=== PATIENT | female | born 1960 | race Caucasian/White ===

== ENCOUNTER 2017-06-23 08:22 | Day surgery (SDC) | payer OTHER ==
[~2017-06-23] VITALS: Ht 160 cm; Wt 95.4 kg
[2017-06-23 09:14] VITALS: Ht 160 cm; Wt 95.4 kg
[2017-06-23] MEDS ORDERED: ACID REDUCER PO (09:16)
[2017-06-23] MEDS ORDERED: PROPOFOL 60 ML ONE (09:36)
[2017-06-23 09:42] VITALS: BP 117/71; PULSE 102; RESP 20
--- NOTE | 2017-06-23 10:21 | OPPN ---
Date/Time of Note Date/Time of Note DATE: 06/23/17 TIME: 10:20 Operative Report Preoperative Diagnosis Chronic heartburn Screening colonoscopy Postoperative Diagnosis Gastroesophageal reflux disease Gastritis with erosions Colonoscopy all the way to the cecum Internal hemorrhoids No colon neoplasm is identified Operation/Procedure Performed Esophagogastroduodenoscopy and biopsy Colonoscopy Surgeon see signature line media center assistant None Anesthesia: MAC Estimated blood loss: none Transfusion Required none Specimen Gastric mucosal biopsy Grafts/Implants none Complications none RADHA LERNER MD Jun 23, 2017 10:21
[2017-06-23 10:39] VITALS: PULSE 65; RESP 14
--- NOTE | 2017-06-23 11:48 | GILP ---
DATE OF PROCEDURE: 06/23/2017 NAME OF PROCEDURES: 1. Esophagogastroduodenoscopy and biopsy. 2. Colonoscopy. SURGEON: Radha Pulido MD PREOPERATIVE DIAGNOSES: 1. Chronic heartburn. 2. Screening colonoscopy. POSTOPERATIVE DIAGNOSES: 1. Gastroesophageal reflux disease. 2. Gastritis with erosions. 3. Gastric mucosal biopsies were taken for Helicobacter pylori test. 4. Colonoscopy all the way to the cecum. 5. Internal hemorrhoids. 6. No colon neoplasm was identified. INDICATION FOR THE PROCEDURES: Ms. Cinthia Arguello is a 56-year-old female patient who had chronic heartburn, not responding to therapy. She also needed screening colonoscopy. The procedures and possible complications are well explained to the patient, she understood and cons ented to the procedure. DESCRIPTION OF PROCEDURE: Under the influence of anesthesia, the gastroscope was carefully introduc ed into the esophagus and under direct vision, it was advanced to the stomach and to the pylorus int o the duodenal bulb and descending duodenum. FINDINGS: ESOPHAGUS: The patient had gastroesophageal reflux disease. STOMACH: She had gastritis with erosions. Gastric mucosal biopsies were taken for H. pylori test. DUODENUM: Normal. The colonoscope was carefully introduced in the rectum and under direct vision, it was advanced all the way to the cecum. FINDINGS: The patient had internal hemorrhoids. No colon neoplasm was identified. She tolerated the procedures very well and there was no complication from the procedures. At the en d of the procedures, she was awake with stable vital signs and she was discharged home to the care o f her family. IMPRESSION: 1. Gastroesophageal reflux disease. 2. Gastritis with erosions. 3. Gastric mucosal biopsies were taken for Helicobacter pylori test. 4. Colonoscopy all the way to the cecum. 5. Internal hemorrhoids. 6. No colon neoplasm was identified. PLAN: 1. Omeprazole 40 mg p.o. q.a.m. 2. Await H. pylori test report. 3. Next screening colonoscopy in 10 years. Dictated By: RADHA FRANCISCO/JASWINDER Conf#: [id number] DID#: [id number]
== END 2017-06-23 15:27 | disposition home or self-care (01) ==
LOC: GIL 08:22
PROVIDERS: ATTEND Internal Medicine Gastroenterology
DX: Z12.11 Encounter for screening for malignant neoplasm of colon (principal); K64.8 Other hemorrhoids; K21.9 Gastro-esophageal reflux disease without esophagitis; K29.70 Gastritis, unspecified, without bleeding; E66.01 Morbid (severe) obesity due to excess calories; Z68.37 Body mass index [BMI] 37.0-37.9, adult
CPT/HCPCS: 43239; 45378; 87081; Z7610